=== PATIENT | female | born 1990 | race African-American/Black ===

== ENCOUNTER 2018-03-08 21:08 | Emergency (ER) | payer OTHER ==
[~2018-03-08] VITALS: Ht 160 cm; Wt 63.5 kg
[2018-03-08 21:12] VITALS: BP 136/97
[2018-03-08] MEDS ORDERED: ZOFRAN4 MG ORAL (21:34)
--- NOTE | 2018-03-08 21:39 | Emergency Room Report ---
History of Present Illness General Chief Complaint: Flu Like Symptoms Source: Patient Present Illness HPI Patient presents with complaints of fever,runny nose Mild sore throat Nausea General malaise,symptoms ongoing past 2-3 days Denies any posterior neck pain or photophobia Denies any chest pain Denies any short of breath patient also had some increased nausea and left lower abdominal cramping Denies any vaginal spotting denies any dysuria frequency Patient reports that she is not Allergies: Coded Allergies: No Known Allergies (Unverified , 03/08/18) Patient History Past Medical History: see triage record Pertinent Family History: none Last Menstrual Period: 03/05/18 Now: No Reviewed Nursing Documentation: PMH: Agreed; PSxH: Agreed Nursing Documentation-PMH Past Medical History: No History, Except For Hx Cardiac Problems: Yes - heart murmur Review of Systems All Other Systems: negative except mentioned in HPI Physical Exam Vital Signs Date Time Temp Pulse Resp B/P (MAP) Pulse Ox O2 Delivery O2 Flow Rate FiO2 03/08/18 21:12 98.7 92 16 136/97 96 Room Air 98.8 Sp02 EP Interpretation: reviewed, normal General Appearance: well appearing, no apparent distress Head: normocephalic, atraumatic Eyes: bilateral eye PERRL, bilateral eye EOMI ENT: hearing grossly normal, normal pharynx, TMs + canals normal, uvula midline Neck: full range of motion, supple, no meningismus, no bony tend Respiratory: lungs clear, normal breath sounds, no rhonchi, no respiratory distress, no retraction, no accessory muscle use Cardiovascular #1: normal peripheral pulses, regular rate, rhythm, no edema, no gallop, no JVD, no murmur Gastrointestinal: normal bowel sounds, non tender, soft, no mass, no organomegaly, non-distended, no guarding, no hernia, no pulsatile mass, no rebound Musculoskeletal: normal inspection Neurologic: oriented x3, responsive, churn driller III-XII nml as tested, motor strength/ tone normal, sensory intact Psychiatric: mood/affect normal Skin: normal color, no rash, warm/dry, palpation normal Lymphatic: normal inspection, no adenopathy Medical Decision Making Diagnostic Impression: Primary Impression: Influenza-like symptoms ER Course Patient's clinical history exam and presentation is consistent with what sounds to be viral URI Patient's abdomen is soft on examination denies any pain at this time Given the nausea I did recommend obtaining urine along with however patient states that she has no other urinary symptoms and reports that she is not At this time patient remains hemodynamically stable Appears to respond well to Advil at home with fevers that she subjectively felt At this time will have continued conservative outpatient trial Last Vital Signs Date Time Temp Pulse Resp B/P (MAP) Pulse Ox O2 Delivery O2 Flow Rate FiO2 03/08/18 21:29 92 16 Room Air 03/08/18 21:12 98.7 136/97 96 98.8 Status: unchanged Disposition: HOME, SELF-CARE Condition: Stable Scripts Ondansetron (Zofran) 4 Mg Tablet 4 MG ORAL Q8H PRN for Nausea & Vomiting, #10 TAB 0 Refills Prov: Raymond Pierre DO 03/08/18 Patient Instructions: Upper Respiratory Infection, Adult, [id number] Additional Instructions: Patient is provided with the discharge instructions notified to follow up with primary doctor in the next 2-3 days otherwise return to the er with any worsening symptoms. Please note that this report is being documented using [employer] technology. This can lead to erroneous entry secondary to incorrect interpretation by the dictating instrument. Raymond Pierre DO Mar 08, 2018 21:39
[2018-03-08 21:46] VITALS: BP 136/97
== END 2018-03-08 21:46 | disposition home or self-care (01) ==
LOC: EMR 21:28
DX: J11.1 Influenza due to unidentified influenza virus with other respiratory manifestations (principal)
CPT/HCPCS: 99282